=== PATIENT | female | born 1975 | race Caucasian/White ===

== ENCOUNTER → 2017-01-30 | Outpatient (CLI) | payer BC ==
[~2017-01-30] MED LIST: AMLO5TAB2 PO; CELE100C PO; HYDR200T PO; OMEP20CA10 PO; TRAM50TA4 PO
== END ==
LOC: WC.BC 13:15
DX: Z12.31 Encounter for screening mammogram for malignant neoplasm of breast (principal)
CPT/HCPCS: 77063; G0202